=== PATIENT | female | born 1960 | race Caucasian/White ===

== ENCOUNTER → 2019-02-28 | Outpatient (CLI) | payer OTHER | END | disposition home or self-care (01) | LOC: CARD 10:32 | DX: C50.911 Malignant neoplasm of unspecified site of right female breast (principal) ==

== ENCOUNTER → 2019-08-08 | Outpatient (CLI) | payer OTHER ==
[~2019-08-08] MED LIST: ALLOPURINOL100 MG PO; ANASTROZOLE1 M1 PO; CALTRATE 600 P1 EACH PO; LEVAQUIN750 M1 PO; METFORMIN XR500 MG PO; OZEMPIC1 MG/0.75 SQ; PROCARDIA XL60 MG PO; VITAMIN B COMP1 EAC1 PO; VITAMIN C1000 M5 PO; VITAMIN D350 MC2 PO; [UNRECOGNIZED DRUG - OTHER] PO
== END | disposition home or self-care (01) ==
LOC: COVID19 09:40
DX: B34.9 Viral infection, unspecified (principal)

== ENCOUNTER 2019-08-12 21:29 | Inpatient (IN) | payer BC ==
[~2019-08-12] VITALS: Ht 157.5 cm; Wt 99.0 kg
[2019-08-12 21:37] VITALS: BP 181/89
[2019-08-12 22:16] LABS: BASO # 0.1 10*3/uL (0.0-0.1); BASO % 0.5 % (0.0-1.0); EOS # 0.3 10*3/uL (0.0-0.4); EOS % 2.3 % (1.0-4.0); HEMATOCRIT 34.4 % (37.0-47.0); LYMPH # 2.4 10*3/uL (1.3-4.4); LYMPH % 16.9 % (27.0-41.0); MEAN CELL VOLUME 89.1 fl (81.0-99.0); MEAN CORPUSCULAR HGB CONC 32.6 g/dl (33.0-37.0); MONO # 1.1 10*3/uL (0.1-1.0); MONO % 7.5 % (3.0-9.0); NEUT # 10.2 10*3/uL (2.3-7.9); NEUT % 72.2 % (47.0-73.0); PLATELET COUNT AUTOMATED 343 10*3/uL (130-400); RED BLOOD COUNT 3.86 10*6/uL (4.10-5.10); RED CELL DISTRI WIDTH 12.3 % (0-14.5); WHITE BLOOD COUNT 14.2 10*3/uL (4.8-10.8)
[2019-08-12 22:26] LABS: ACT PARTIAL THROMBO TIME 31.1 SECONDS (20.0-32.1)
[2019-08-12 22:30] VITALS: BP 149/81
[2019-08-12 22:32] LABS: ALBUMIN 2.9 gm/dl (3.1-4.5); ALKALINE PHOSPHATASE 110 U/L (45-117); BUN 11 mg/dl (7-24); CHLORIDE 108 mmol/L (98-107); CREATININE 0.73 mg/dL (0.55-1.02); POTASSIUM 3.8 mmol/L (3.5-5.1); SGOT/AST 20 IU/L (3-35); SGPT/ALT 38 U/L (12-78); SODIUM 138 mmol/L (136-145); TOTAL PROTEIN 7.8 gm/dL (6.4-8.2); TROPONIN I < 0.015 ng/ml (<0.045)
[2019-08-12 23:55] LABS: BILIRUBIN NEGATIVE (NEGATIVE); BLOOD NEGATIVE (NEGATIVE); CLARITY CLEAR (CLEAR); COLOR YELLOW (YELLOW); GLUCOSE NEGATIVE (NEGATIVE); KETONE NEGATIVE (NEGATIVE)
[2019-08-12 23:56] LABS: BACTERIA 1+; LEUKO ESTERASE NEGATIVE (NEGATIVE); MUCOUS 1+; NITRITE NEGATIVE (NEGATIVE); UROBILINOGEN 0.2 E.U./dl (0.2-1.0)
--- NOTE | 2019-08-13 03:26 | NUR ---
PT REFUSING PHOTOGRAPHS OF SURGICAL WOUNDS TO BILATERAL BREASTS.
[2019-08-13 03:35] VITALS: BP 173/80
--- NOTE | 2019-08-13 03:35 | NUR ---
A 59, admitted to 4E, under the services of BIPIN Barnes DO with a diagnosis of PNEUMONIA Chief complaint is INTERMITTENT TACHYCARDIA AND SOB FOR WEEKS JUST AFTER RIGHT BREAST RECONSTRUCTION AND ALSO HAD LEFT MASTECOMY. . Patient arrived via stretcher from ER. Monitor applied. Initial assessment completed. Vital signs taken and recorded. BIPIN BARNES DO notified of admission to the 4 E. Orders received. See assessment for past medical history, medications and allergies. Patient and/or family oriented to unit. [facility] visitation policy reviewed. Clothing/patient valuable form completed. MULTIPLE SURGICAL INCISION, 2 LEFT BREAST AREA AND 2 RIGHT BREAST. PATIENT REFUSED TO HAVE PICTURES TAKEN OF THIS OR MEASUREMENTS DONE. RIGHT BREAST IS RED AROUND LOWER HALF OF BREAST. DENIED PRODUCTIVE COUGH. MIKEL GARY J
[2019-08-13] MEDS ORDERED: OZEMPIC1 MG/0.75 SQ (03:57)
[2019-08-13] MEDS ORDERED: METFORMIN XR500 MG PO (03:57)
[2019-08-13] MEDS ORDERED: PROCARDIA XL60 MG PO (03:58)
[2019-08-13] MEDS ORDERED: ALLOPURINOL100 MG PO (03:59)
[2019-08-13] MEDS ORDERED: CALTRATE 600 P1 EACH PO (04:00)
[2019-08-13] MEDS ORDERED: VITAMIN C1000 M5 PO (04:01)
[2019-08-13] MEDS ORDERED: VITAMIN B COMP1 EAC1 PO (04:01)
[2019-08-13] MEDS ORDERED: [UNRECOGNIZED DRUG - OTHER] PO (04:12)
[2019-08-13] MEDS ORDERED: ANASTROZOLE1 M1 PO (04:14)
[2019-08-13 06:33] LABS: BASO # 0.1 10*3/uL (0.0-0.1); BASO % 0.4 % (0.0-1.0); EOS # 0.2 10*3/uL (0.0-0.4); EOS % 1.3 % (1.0-4.0); HEMATOCRIT 32.6 % (37.0-47.0); LYMPH % 19.4 % (27.0-41.0); MEAN CELL VOLUME 88.3 fl (81.0-99.0); MEAN CORPUSCULAR HGB 28.7 pg (27.0-31.0); MEAN CORPUSCULAR HGB CONC 32.5 g/dl (33.0-37.0); MEAN PLATELET VOLUME 9.2 fl (9.6-12.3); MONO # 1.2 10*3/uL (0.1-1.0); MONO % 7.5 % (3.0-9.0); NEUT # 11.1 10*3/uL (2.3-7.9); NEUT % 70.9 % (47.0-73.0); PLATELET COUNT AUTOMATED 352 10*3/uL (130-400); RED BLOOD COUNT 3.69 10*6/uL (4.10-5.10); RED CELL DISTRI WIDTH 12.1 % (0-14.5); WHITE BLOOD COUNT 15.6 10*3/uL (4.8-10.8)
[2019-08-13 06:54] LABS: BUN 8 mg/dl (7-24); CHLORIDE 107 mmol/L (98-107); CREATININE 0.61 mg/dL (0.55-1.02); POTASSIUM 3.4 mmol/L (3.5-5.1); SODIUM 140 mmol/L (136-145)
--- NOTE | 2019-08-13 07:05 | NUR ---
PER LAB DRAW BLOOD GLUCOSE 129. NO BEDSIDE GLUCOSE WAS DONE THIS AM BECAUSE PATIENT HAD A LAB DRAW THIS AM.
[2019-08-13 07:32] LABS: VITAMIN D, 25-HYDROXY 24.2 ng/mL (30-100)
--- NOTE | 2019-08-13 07:36 | NUR ---
CALLED AND NOTIFIED DR. SCHUMACHER OF CONSULT AND HE STATED "OK"
[2019-08-13 08:00] VITALS: BP 156/86
--- NOTE | 2019-08-13 11:03 | NUR ---
TYLENOL GIVEN FOR C/O OF HEADACHE RATING 5/10
--- NOTE | 2019-08-13 11:32 | NUR ---
PER PT PRN TYLENOL WAS EFFECTIVE FOR HEADACHE
[2019-08-13 12:00] VITALS: BP 136/68
[2019-08-13 16:00] VITALS: BP 133/58
[2019-08-13 20:00] VITALS: BP 148/69
--- NOTE | 2019-08-13 20:02 | NUR ---
NO VOICED COMPLAINTS. FLAT AFFECT. CALL LIGHT IN REACH. IV ABX HOOKED UP AND RUNNING WITH EASE.
[2019-08-14] VITALS: BP 157/79
--- NOTE | 2019-08-14 00:30 | NUR ---
AWAKE, WATCHING TV. NO VOICED COMPLAINTS AT THIS TIME. CALL LIGHT WITHIN REACH.
--- NOTE | 2019-08-14 01:31 | NUR ---
24HR CHART CHECK COMPLETED
[2019-08-14 05:55] LABS: BUN 8 mg/dl (7-24); CHLORIDE 107 mmol/L (98-107); POTASSIUM 3.4 mmol/L (3.5-5.1); SODIUM 144 mmol/L (136-145)
--- NOTE | 2019-08-14 06:11 | NUR ---
BSG 139 ON AM LABS. NO COVERAGE NEEDED PER ORDERS.
[2019-08-14 06:14] LABS: BASO # 0.1 10*3/uL (0.0-0.1); BASO % 0.7 % (0.0-1.0); EOS # 0.2 10*3/uL (0.0-0.4); HEMATOCRIT 32.5 % (37.0-47.0); LYMPH # 3.3 10*3/uL (1.3-4.4); LYMPH % 27.2 % (27.0-41.0); MEAN CELL VOLUME 88.8 fl (81.0-99.0); MEAN CORPUSCULAR HGB 28.7 pg (27.0-31.0); MEAN CORPUSCULAR HGB CONC 32.3 g/dl (33.0-37.0); MEAN PLATELET VOLUME 8.9 fl (9.6-12.3); MONO # 1.1 10*3/uL (0.1-1.0); MONO % 8.6 % (3.0-9.0); NEUT # 7.4 10*3/uL (2.3-7.9); NEUT % 60.6 % (47.0-73.0); PLATELET COUNT AUTOMATED 336 10*3/uL (130-400); RED BLOOD COUNT 3.66 10*6/uL (4.10-5.10); WHITE BLOOD COUNT 12.2 10*3/uL (4.8-10.8)
--- NOTE | 2019-08-14 08:17 | NUR ---
PRN TYLENOL GIVEN FOR C/O BACK PAIN, RATING 5/10 PT ALSO REPOSITIONED TO RECLINER CHAIR
--- NOTE | 2019-08-14 09:00 | NUR ---
PER PT TYLENOL AND REPOSITIONING WAS EFFECTIVE FOR BACK PAIN.
[2019-08-14 12:00] VITALS: BP 115/55
[2019-08-14 16:00] VITALS: BP 118/49; BP 119/48
[2019-08-14 20:00] VITALS: BP 124/58
--- NOTE | 2019-08-14 20:00 | NUR ---
PATIENT RESTING IN CHAIR AT BEDSIDE WITH NO NEEDS MADE. DENIES PAIN. BED IN LOW POSITION, CALL LIGHT IN REACH
--- NOTE | 2019-08-14 22:40 | NUR ---
PATIENT SITTING IN CHAIR AT BEDSIDE WITH NO NEEDS MADE. BED IN LOWEST POSITION, CALL LIGHT IN REACH
[2019-08-15] VITALS (9 sets, daily range): BP systolic 97–134; BP diastolic 52–68
--- NOTE | 2019-08-15 04:34 | NUR ---
PATIENT RESTING IN BED WITH EYES CLOSED. NO S/S OF DISTRESS. BED IN LOWEST POSITION, CALL LIGHT IN REACH
[2019-08-15 06:10] LABS: BUN 9 mg/dl (7-24); CHLORIDE 109 mmol/L (98-107); CREATININE 0.62 mg/dL (0.55-1.02); POTASSIUM 3.9 mmol/L (3.5-5.1); SODIUM 141 mmol/L (136-145)
--- NOTE | 2019-08-15 06:11 | NUR ---
LEONIDAS LOVE [id number] Please refer to the physician's history and physical for past medical history, comorbid conditions, and allergies. Diagnosis: PNEUMONIA Sharan Score: 20,LOW OR NO RISK WOUND DESCRIPTIONS: Wound Number: 1 Location of the wound: left breast Type of wound: Surgical incision intact at time of assessment Pt stated this happened 4 weeks ago at [facility] with Dr. Cesar and Dr. Jenkins and she states she will continue to follow up with them upon discharge. She states she is supposed to leave these incisions open to air and that she is to wear a surgical bra but hasn't wore since admission Wound Number: 2 Location of the wound: right breast Type of wound: surgical Thickness: Full Size: 0.5cm x 1.2cm x 0.1cm Tunneling: none Undermining: none Sinus Tract: none Presence of Exudate: none Amount: None Color: Yellow, red Odor: None Periwound Skin Appearance: Normal Wound edges: approximated Pain (associated with wound): none at time of assessment How does patient state this happened? Pt stated this happened 4 weeks ago at [facility] with Dr. Cesar and Dr. Jenkins and she states she will continue to follow up with them upon discharge. She states she is supposed to leave these incisions open to air and that she is to wear a surgical bra but hasn't wore since admission Surface the patient is resting on: Proform SKIN PREVENTION RECOMMENDATION: 1. Pressure redistribution support surface as appropriate 2. Elevate heels 3. Remove boots/TEDS every shift and reapply 4. Head of bed 30 degrees as tolerated 5. Assess nutrition and hydration 6. Manage moisture 7. Avoid the use of containment devices while in bed 8. Use absorptive products on surfaces limit layers of linens on bed 9. Turn and reposition every 1-2 hours in bed and every 1 hour in chair as tolerated 10. Weight shifts every 15 minutes while up in chair 11. Offloading with pillows or device to keep heels elevated off bed 12. Monitor skin at least every shift 13. Inspect under medical devices twice a day WOUND TREATMENT RECOMMENDATIONS: Leave open to air Patient states she will follow up with her surgeons upon discharge.
[2019-08-15 06:20] LABS: BASO # 0.1 10*3/uL (0.0-0.1); BASO % 0.7 % (0.0-1.0); EOS # 0.3 10*3/uL (0.0-0.4); EOS % 2.5 % (1.0-4.0); HEMATOCRIT 32.7 % (37.0-47.0); LYMPH # 3.5 10*3/uL (1.3-4.4); LYMPH % 30.1 % (27.0-41.0); MEAN CELL VOLUME 88.6 fl (81.0-99.0); MEAN CORPUSCULAR HGB 28.2 pg (27.0-31.0); MEAN CORPUSCULAR HGB CONC 31.8 g/dl (33.0-37.0); MEAN PLATELET VOLUME 8.7 fl (9.6-12.3); MONO # 0.7 10*3/uL (0.1-1.0); MONO % 6.1 % (3.0-9.0); NEUT # 6.9 10*3/uL (2.3-7.9); NEUT % 59.4 % (47.0-73.0); PLATELET COUNT AUTOMATED 354 10*3/uL (130-400); RED BLOOD COUNT 3.69 10*6/uL (4.10-5.10); RED CELL DISTRI WIDTH 12.1 % (0-14.5); WHITE BLOOD COUNT 11.6 10*3/uL (4.8-10.8)
--- NOTE | 2019-08-15 07:55 | NUR ---
SENT TO SURGERY FOR BRONCH
--- NOTE | 2019-08-15 09:00 | NUR ---
Feather Separator in to talk to patient. Patient states lives at home with son and daughter. There are no steps in the home. Physician: maria del carmen morse [facility]acy: [facility] Home health services: none Patient's level of ADLs: INDEPENDENT Patient has working utilities: all working DME: none Follow-up physician's appointment after d/c: will be made by hospitalist nurse director upon discharge Does patient want to access PORTAL?: no Discharge plan discussed with patient she states she lives at home with her son and daughter, she states she is independent in adls and ambulation, works, drives, she states she will return home when medically stable and denies any home needs.. SHEYLA SR
--- NOTE | 2019-08-15 09:00 | NUR ---
Litigation Paralegal in to talk to patient. Patient states lives at home with son and daughter. There are no steps in the home. Physician: maria dle carmen knapp [facility]acy: [facility] Home health services: none Patient's level of ADLs: INDEPENDENT Patient has working utilities: all working DME: none Follow-up physician's appointment after d/c: will be made by hospitalist nurse director upon discharge Does patient want to access PORTAL?: no Discharge plan discussed with patient, she states she lives at home with her son and daughter, she is independent in adls and ambulation, works, drives, she stated she will return home when medically stable and denies any home needs, case management will follow. SHEYLA SR
--- NOTE | 2019-08-15 09:54 | NUR ---
SPEECH PATHOLOGY Nursing screen completed. There are no reports of dysphagia however this dept. will be available if future needs arise. IVAN MOLINA MSCCC-PROGRAMMER ANALYST
--- NOTE | 2019-08-15 09:56 | NUR ---
return from bronch
--- NOTE | 2019-08-15 10:10 | NUR ---
PT AWARE TO ORDER CLEAR LIQID DIET FIRST MEAL. PT COUGHING, PRODUCTIVE COUGH. NO DISTRESS NOTED.
--- NOTE | 2019-08-15 10:34 | NUR ---
DR. MIGUEL IN TO SEE PATIENT, AWARE PT C/O DIARRHEA. OKAY TO D/C VP SECURITY
[2019-08-16] VITALS: BP 115/55
--- NOTE | 2019-08-16 01:18 | NUR ---
24 HR chart check completed.
[2019-08-16 06:43] LABS: BUN 11 mg/dl (7-24); CHLORIDE 111 mmol/L (98-107); CREATININE 0.68 mg/dL (0.55-1.02); POTASSIUM 3.5 mmol/L (3.5-5.1); SODIUM 142 mmol/L (136-145)
[2019-08-16 07:05] LABS: BASO # 0.1 10*3/uL (0.0-0.1); BASO % 0.3 % (0.0-1.0); EOS % 0.3 % (1.0-4.0); HEMATOCRIT 31.6 % (37.0-47.0); LYMPH # 4.4 10*3/uL (1.3-4.4); LYMPH % 29.4 % (27.0-41.0); MEAN CELL VOLUME 89.5 fl (81.0-99.0); MEAN CORPUSCULAR HGB 28.6 pg (27.0-31.0); MEAN PLATELET VOLUME 8.9 fl (9.6-12.3); MONO # 0.9 10*3/uL (0.1-1.0); MONO % 5.7 % (3.0-9.0); NEUT # 9.3 10*3/uL (2.3-7.9); NEUT % 62.7 % (47.0-73.0); PLATELET COUNT AUTOMATED 381 10*3/uL (130-400); RED BLOOD COUNT 3.53 10*6/uL (4.10-5.10); RED CELL DISTRI WIDTH 12.1 % (0-14.5); WHITE BLOOD COUNT 14.8 10*3/uL (4.8-10.8)
[2019-08-16 08:00] VITALS: BP 98/53
--- NOTE | 2019-08-16 09:00 | NUR ---
case management visits with patient she states she will return home when medically stable and denies any home needs, case management will follow
--- NOTE | 2019-08-16 10:00 | NUR ---
PT IN ROOM, AWAKE, ALERT, & ORIENTED X3. DENIES ANY PAIN. LUNGS DIMINISHED T/O. ROOM AIR POX 96%. ABD SOFT, NONTENDER. DENIES N/V. C/O SOME LOOSE STOOLS WHICH IS IMPROVING. TRACE AMOUNT OF EDEMA NOTED TO BILAT ANKLES. CALL LIGHT IS WITHIN REACH. IV ANTIBITIOC INFUSING PER ORDER.
[2019-08-16 12:00] VITALS: BP 117/54
[2019-08-16 12:08] LABS: ACID FAST SPEC PROCESSING Concentration (.)
[2019-08-16 16:00] VITALS: BP 119/59
--- NOTE | 2019-08-16 19:30 | NUR ---
PT RESTING IN CHAIR. VOICES NO CONCERNS AT THIS TIME. RESPS EASY AND NON LABORED. NO S/S OF DISTRESS NOTED. VSS. WHITE BOARD UPDATED. CALL LIGHT WITHIN REACH.
[2019-08-16 20:00] VITALS: BP 97/66
[2019-08-17] VITALS: BP 136/72
--- NOTE | 2019-08-17 01:17 | NUR ---
24 HR chart check completed.
--- NOTE | 2019-08-17 02:10 | NUR ---
Patient resting quietly with no c/o discomfort. Respirations easy and regular. Vital signs stable. No overt distress. CALL LIGHT WITHIN REACH HISSOM,INDIA
--- NOTE | 2019-08-17 04:22 | NUR ---
Patient sleeping. Respirations relaxed and easy. Siderails up . [place] on. CALL LIGHT WITHIN REACH. NO S/S OF DISTRESS NOTED HISSOM,INDIA
--- NOTE | 2019-08-17 06:50 | NUR ---
LABS THAT WERE SCHEDULED FOR 05 THIS MORNING ARE INCOMPLETE AT THIS TIME. UNABLE TO GIVE VANCOCIN DUE TO UNCOLLECTED VANC. TROUGH. WILL PASS ALONG FOR DAY SHIFT NURSE TO GIVE.
[2019-08-17 07:47] LABS: BASO # 0.1 10*3/uL (0.0-0.1); BASO % 0.6 % (0.0-1.0); EOS # 0.2 10*3/uL (0.0-0.4); EOS % 2.2 % (1.0-4.0); HEMATOCRIT 32.3 % (37.0-47.0); LYMPH # 4.1 10*3/uL (1.3-4.4); LYMPH % 37.3 % (27.0-41.0); MEAN CELL VOLUME 90.5 fl (81.0-99.0); MEAN CORPUSCULAR HGB 28.3 pg (27.0-31.0); MEAN CORPUSCULAR HGB CONC 31.3 g/dl (33.0-37.0); MEAN PLATELET VOLUME 8.7 fl (9.6-12.3); MONO # 0.7 10*3/uL (0.1-1.0); MONO % 6.7 % (3.0-9.0); NEUT # 5.6 10*3/uL (2.3-7.9); NEUT % 51.7 % (47.0-73.0); PLATELET COUNT AUTOMATED 372 10*3/uL (130-400); RED BLOOD COUNT 3.57 10*6/uL (4.10-5.10); RED CELL DISTRI WIDTH 12.3 % (0-14.5); WHITE BLOOD COUNT 10.9 10*3/uL (4.8-10.8)
[2019-08-17 08:00] VITALS: BP 99/71
[2019-08-17 08:05] LABS: BUN 11 mg/dl (7-24); CHLORIDE 112 mmol/L (98-107); CREATININE 0.63 mg/dL (0.55-1.02); POTASSIUM 3.8 mmol/L (3.5-5.1); SODIUM 144 mmol/L (136-145)
--- NOTE | 2019-08-17 09:00 | NUR ---
case management visits with patient, she states she will return home when medically stable and denies any home needs. case management will follow
[2019-08-17] MEDS ORDERED: VITAMIN D350 MC2 PO (11:00)
[2019-08-17] MEDS ORDERED: LEVAQUIN750 M1 PO (11:08)
--- NOTE | 2019-08-17 13:55 | NUR ---
Discharge instructions reviewed with patient/family. Patient receptive and verbalizes understanding. Follow-up care arranged. Written instructions given to patient/family. HEPLOCK DISCONTINUED. PATIENT TAKEN OFF FLOOR VIA WHEELCHAIR. PICKED UP BY ROBIN BOBO
== END 2019-08-17 13:55 | disposition home or self-care (01) | DRG 871 ==
LOC: ED 21:29 → EDHOLD 08-13 03:04 → 4E 08-13 03:04
PROVIDERS: Emergency Medicine Emergency Medical Services; Family Medicine; Internal Medicine; Internal Medicine Critical Care Medicine; ADMIT Emergency Medicine
PROC: 0B918ZZ Drainage of Trachea, Via Natural or Artificial Opening Endoscopic (ICD-10-PCS; principal; 2019-08-15)
PROC: 0B958ZZ Drainage of Right Middle Lobe Bronchus, Via Natural or Artificial Opening Endoscopic (ICD-10-PCS; principal; 2019-08-15)
PROC: 0B948ZZ Drainage of Right Upper Lobe Bronchus, Via Natural or Artificial Opening Endoscopic (ICD-10-PCS; principal; 2019-08-15)
PROC: 0B998ZZ Drainage of Lingula Bronchus, Via Natural or Artificial Opening Endoscopic (ICD-10-PCS; principal; 2019-08-15)
PROC: 0B978ZZ Drainage of Left Main Bronchus, Via Natural or Artificial Opening Endoscopic (ICD-10-PCS; principal; 2019-08-15)
PROC: 0B988ZZ Drainage of Left Upper Lobe Bronchus, Via Natural or Artificial Opening Endoscopic (ICD-10-PCS; principal; 2019-08-15)
PROC: 0B938ZZ Drainage of Right Main Bronchus, Via Natural or Artificial Opening Endoscopic (ICD-10-PCS; principal; 2019-08-15)
PROC: 0B9B8ZZ Drainage of Left Lower Lobe Bronchus, Via Natural or Artificial Opening Endoscopic (ICD-10-PCS; principal; 2019-08-15)
PROC: 0B968ZZ Drainage of Right Lower Lobe Bronchus, Via Natural or Artificial Opening Endoscopic (ICD-10-PCS; principal; 2019-08-15)
DX: A41.9 Sepsis, unspecified organism (principal); J18.9 Pneumonia, unspecified organism; E44.0 Moderate protein-calorie malnutrition; E66.01 Morbid (severe) obesity due to excess calories; I16.0 Hypertensive urgency; D64.9 Anemia, unspecified; E87.8 Other disorders of electrolyte and fluid balance, not elsewhere classified; E11.65 Type 2 diabetes mellitus with hyperglycemia; M1A.09X0 Idiopathic chronic gout, multiple sites, without tophus (tophi); E87.6 Hypokalemia; R91.8 Other nonspecific abnormal finding of lung field; Z68.39 Body mass index [BMI] 39.0-39.9, adult; Z88.0 Allergy status to penicillin; Z88.2 Allergy status to sulfonamides; Z88.5 Allergy status to narcotic agent; Z79.84 Long term (current) use of oral hypoglycemic drugs; Z79.899 Other long term (current) drug therapy; Z85.3 Personal history of malignant neoplasm of breast; Z90.49 Acquired absence of other specified parts of digestive tract; Z90.12 Acquired absence of left breast and nipple

== ENCOUNTER → 2019-09-21 | Outpatient (CLI) | payer BC ==
[2019-09-21 11:03] LABS: ALBUMIN 3.7 gm/dl (3.1-4.5); ALKALINE PHOSPHATASE 83 U/L (45-117); BUN 13 mg/dl (7-24); CHLORIDE 107 mmol/L (98-107); CHOLESTEROL 223 mg/dL (<200); CREATININE 0.78 mg/dL (0.55-1.02); HDL CHOLESTEROL 55 mg/dl (40-60); LDL CHOLESTEROL 126 mg/dL (9-159); POTASSIUM 4.2 mmol/L (3.5-5.1); SGOT/AST 17 IU/L (3-35); SGPT/ALT 35 U/L (12-78); SODIUM 137 mmol/L (136-145); TOTAL PROTEIN 7.9 gm/dL (6.4-8.2); TRIGLYCERIDES 212 mg/dl (<150); URIC ACID 4.7 mg/dL (2.6-6.0); VLDL CHOLESTEROL 42 mg/dL (6-40)
[2019-09-21 11:13] LABS: BASO # 0.1 10*3/uL (0.0-0.1); BASO % 0.7 % (0.0-1.0); EOS # 0.2 10*3/uL (0.0-0.4); EOS % 1.9 % (1.0-4.0); HEMATOCRIT 38.3 % (37.0-47.0); LYMPH # 2.6 10*3/uL (1.3-4.4); LYMPH % 28.7 % (27.0-41.0); MEAN CELL VOLUME 88.2 fl (81.0-99.0); MEAN CORPUSCULAR HGB 28.6 pg (27.0-31.0); MEAN CORPUSCULAR HGB CONC 32.4 g/dl (33.0-37.0); MEAN PLATELET VOLUME 9.3 fl (9.6-12.3); MONO # 0.5 10*3/uL (0.1-1.0); MONO % 5.3 % (3.0-9.0); NEUT # 5.8 10*3/uL (2.3-7.9); NEUT % 63.1 % (47.0-73.0); PLATELET COUNT AUTOMATED 270 10*3/uL (130-400); RED BLOOD COUNT 4.34 10*6/uL (4.10-5.10); RED CELL DISTRI WIDTH 13.2 % (0-14.5); WHITE BLOOD COUNT 9.2 10*3/uL (4.8-10.8)
== END | disposition home or self-care (01) ==
LOC: CT 10:10 → LAB 10:10 → CT 11:00
PROVIDERS: Nurse Practitioner Family
DX: J18.9 Pneumonia, unspecified organism (principal); I10 Essential (primary) hypertension; A41.9 Sepsis, unspecified organism; R91.8 Other nonspecific abnormal finding of lung field; R00.0 Tachycardia, unspecified

== ENCOUNTER 2020-03-22 07:40 | Emergency (ER) | payer BC | END 2020-03-22 08:41 | disposition home or self-care (01) | LOC: ED 07:40 | DX: I47.1 Supraventricular tachycardia (principal); Z88.0 Allergy status to penicillin; Z88.2 Allergy status to sulfonamides; Z88.8 Allergy status to other drugs, medicaments and biological substances ==

== ENCOUNTER → 2020-04-04 | Outpatient (CLI) | payer BC | END | disposition home or self-care (01) | LOC: CARD 07:25 | PROVIDERS: ATTEND Nurse Practitioner Family | DX: I51.7 Cardiomegaly (principal); I47.1 Supraventricular tachycardia; U07.1 COVID-19 ==

== ENCOUNTER → 2021-02-18 | Outpatient (CLI) | payer BC | END | disposition home or self-care (01) | LOC: RAD 13:00 | PROVIDERS: ATTEND Nurse Practitioner Family | DX: M25.762 Osteophyte, left knee (principal); M76.892 Other specified enthesopathies of left lower limb, excluding foot; M25.562 Pain in left knee ==

== ENCOUNTER → 2021-06-18 | Outpatient (CLI) | payer BC | END | disposition home or self-care (01) | LOC: RAD 13:17 | PROVIDERS: ATTEND Nurse Practitioner Family | DX: M54.2 Cervicalgia (principal); M25.512 Pain in left shoulder ==

== ENCOUNTER → 2021-11-05 | Outpatient (CLI) | payer BC ==
[2021-11-05 11:44] LABS: BASO # 0.1 10*3/uL (0.0-0.1); BASO % 0.8 % (0.0-1.0); EOS # 0.3 10*3/uL (0.0-0.4); EOS % 2.9 % (1.0-4.0); HEMATOCRIT 40.9 % (37.0-47.0); LYMPH # 3.3 10*3/uL (1.3-4.4); LYMPH % 39.2 % (27.0-41.0); MEAN CELL VOLUME 85.7 fl (81.0-99.0); MEAN CORPUSCULAR HGB 29.8 pg (27.0-31.0); MEAN CORPUSCULAR HGB CONC 34.7 g/dl (33.0-37.0); MEAN PLATELET VOLUME 9.1 fl (9.6-12.3); MONO # 0.6 10*3/uL (0.1-1.0); MONO % 6.7 % (3.0-9.0); NEUT # 4.2 10*3/uL (2.3-7.9); PLATELET COUNT AUTOMATED 243 10*3/uL (130-400); RED BLOOD COUNT 4.77 10*6/uL (4.10-5.10); RED CELL DISTRI WIDTH 12.1 % (0-14.5); WHITE BLOOD COUNT 8.5 10*3/uL (4.8-10.8)
[2021-11-05 12:02] LABS: BUN 17 mg/dl (7-24); CHLORIDE 105 mmol/L (98-107); CHOLESTEROL 200 mg/dL (<200); SGOT/AST 29 IU/L (3-35); SODIUM 141 mmol/L (136-145); TOTAL PROTEIN 7.6 gm/dL (6.4-8.2); URIC ACID 4.9 mg/dL (2.6-6.0)
[2021-11-05 12:12] LABS: ALKALINE PHOSPHATASE 96 U/L (45-117); CREATININE 0.77 mg/dL (0.55-1.02); LDL CHOLESTEROL 112 mg/dL (9-159); SGPT/ALT 53 U/L (12-78); THYROID STIM HORMONE (HS) 0.909 uIU/ml (0.358-4.75); TRIGLYCERIDES 232 mg/dl (<150)
== END | disposition home or self-care (01) ==
LOC: LAB 11:18
PROVIDERS: ATTEND Nurse Practitioner Family
DX: E11.65 Type 2 diabetes mellitus with hyperglycemia (principal); I47.1 Supraventricular tachycardia; I10 Essential (primary) hypertension

== ENCOUNTER → 2023-03-11 | Outpatient (CLI) | payer OTHER ==
[2023-03-11 12:46] LABS: BASO # 0.1 10*3/uL (0.0-0.1); BASO % 0.7 % (0.0-1.0); EOS # 0.2 10*3/uL (0.0-0.4); EOS % 1.6 % (1.0-4.0); HEMATOCRIT 39.6 % (37.0-47.0); LYMPH # 3.6 10*3/uL (1.3-4.4); LYMPH % 32.9 % (27.0-41.0); MEAN CELL VOLUME 85.9 fl (81.0-99.0); MEAN CORPUSCULAR HGB 29.3 pg (27.0-31.0); MEAN CORPUSCULAR HGB CONC 34.1 g/dl (33.0-37.0); MEAN PLATELET VOLUME 8.8 fl (9.6-12.3); MONO # 0.9 10*3/uL (0.1-1.0); MONO % 7.9 % (3.0-9.0); NEUT # 6.1 10*3/uL (2.3-7.9); NEUT % 56.6 % (47.0-73.0); PLATELET COUNT AUTOMATED 207 10*3/uL (130-400); RED BLOOD COUNT 4.61 10*6/uL (4.10-5.10); RED CELL DISTRI WIDTH 12.2 % (0-14.5); WHITE BLOOD COUNT 10.8 10*3/uL (4.8-10.8)
[2023-03-11 13:09] LABS: ALKALINE PHOSPHATASE 102 U/L (46-116); BUN 12 mg/dl (9-23); CHLORIDE 104 mmol/L (98-107); POTASSIUM 3.7 mmol/L (3.4-5.1); SGPT/ALT 24 U/L (5-49); TOTAL PROTEIN 7.6 gm/dL (6.0-8.0)
== END | disposition home or self-care (01) ==
LOC: LAB 12:33
PROVIDERS: ATTEND Nurse Practitioner Family
DX: Z20.828 Contact with and (suspected) exposure to other viral communicable diseases (principal); R06.02 Shortness of breath; R05.9 Cough, unspecified; Z97.8 Presence of other specified devices

== ENCOUNTER 2023-03-27 15:26 | Emergency (ER) | payer OTHER ==
[2023-03-27 15:51] LABS: BASO # 0.1 10*3/uL (0.0-0.1); BASO % 0.5 % (0.0-1.0); EOS # 0.2 10*3/uL (0.0-0.4); EOS % 1.5 % (1.0-4.0); HEMATOCRIT 42.5 % (37.0-47.0); LYMPH # 4.3 10*3/uL (1.3-4.4); LYMPH % 29.5 % (27.0-41.0); MEAN CELL VOLUME 87.8 fl (81.0-99.0); MEAN CORPUSCULAR HGB 29.8 pg (27.0-31.0); MEAN CORPUSCULAR HGB CONC 33.9 g/dl (33.0-37.0); MEAN PLATELET VOLUME 9.3 fl (9.6-12.3); MONO # 1.1 10*3/uL (0.1-1.0); MONO % 7.8 % (3.0-9.0); NEUT # 8.8 10*3/uL (2.3-7.9); NEUT % 60.5 % (47.0-73.0); PLATELET COUNT AUTOMATED 285 10*3/uL (130-400); RED BLOOD COUNT 4.84 10*6/uL (4.10-5.10); RED CELL DISTRI WIDTH 12.8 % (0-14.5); WHITE BLOOD COUNT 14.6 10*3/uL (4.8-10.8)
[2023-03-27 16:03] LABS: ACT PARTIAL THROMBO TIME 28.2 SECONDS (20.0-32.1)
[2023-03-27 16:30] LABS: POTASSIUM 3.8 mmol/L (3.4-5.1); TOTAL PROTEIN 7.7 gm/dL (6.0-8.0)
== END 2023-03-27 17:15 | disposition home or self-care (01) ==
LOC: ED 15:26
PROVIDERS: Emergency Medicine
DX: I47.10 Supraventricular tachycardia, unspecified (principal); E11.9 Type 2 diabetes mellitus without complications; R10.2 Pelvic and perineal pain; Z88.0 Allergy status to penicillin; Z88.2 Allergy status to sulfonamides; Z88.5 Allergy status to narcotic agent; Z90.49 Acquired absence of other specified parts of digestive tract; Z98.890 Other specified postprocedural states; Z98.51 Tubal ligation status

== ENCOUNTER 2024-08-14 11:31 | Emergency (ER) | payer OTHER ==
[~2024-08-14] VITALS: Ht 157.4 cm; Wt 101.2 kg
[2024-08-14] MEDS ORDERED: ADENOSINE 6 MG/2 ML VIAL IV ONE (11:50)
[2024-08-14 11:55] LABS: BASO # 0.1 10*3/uL (0.0-0.1); BASO % 0.7 % (0.0-1.0); EOS # 0.1 10*3/uL (0.0-0.4); EOS % 1.3 % (1.0-4.0); HEMATOCRIT 40.6 % (37.0-47.0); MEAN CELL VOLUME 87.9 fl (81.0-99.0); MEAN CORPUSCULAR HGB 30.3 pg (27.0-31.0); MEAN CORPUSCULAR HGB CONC 34.5 g/dl (33.0-37.0); MEAN PLATELET VOLUME 9.2 fl (9.6-12.3); MONO # 0.7 10*3/uL (0.1-1.0); NEUT # 7.2 10*3/uL (2.3-7.9); NEUT % 64.2 % (47.0-73.0); PLATELET COUNT AUTOMATED 297 10*3/uL (130-400); RED BLOOD COUNT 4.62 10*6/uL (4.10-5.10); RED CELL DISTRI WIDTH 12.9 % (0-14.5); WHITE BLOOD COUNT 11.2 10*3/uL (4.8-10.8)
[2024-08-14] MEDS ORDERED: SODIUM CHLORIDE 0.9% 1,000 ML IV ONE ×2 (11:55→12:25)
[2024-08-14 12:13] LABS: BUN 17 mg/dl (9-23); CHLORIDE 104 mmol/L (98-107); POTASSIUM 3.7 mmol/L (3.4-5.1)
[2024-08-14] MEDS ORDERED: DILTIAZEM HYDROCHLORIDE 30 MG PO ONE (12:20)
[2024-08-14] MEDS ORDERED: MAGNESIUM SULFATE 50 ML IV ONE (12:25)
[2024-08-14] MEDS ORDERED: INSULIN REGULAR, HUMAN 1 UNIT/0.01 ML IV ONE (12:25)
== END 2024-08-14 13:30 | disposition home or self-care (01) ==
LOC: ED 11:31
PROVIDERS: Internal Medicine
DX: I47.10 Supraventricular tachycardia, unspecified (principal); E11.65 Type 2 diabetes mellitus with hyperglycemia; Z88.0 Allergy status to penicillin; Z88.2 Allergy status to sulfonamides; Z88.6 Allergy status to analgesic agent; Z79.899 Other long term (current) drug therapy; Z79.84 Long term (current) use of oral hypoglycemic drugs; Z90.49 Acquired absence of other specified parts of digestive tract